=== PATIENT | female | born 1955 | race African-American/Black ===

== ENCOUNTER 2023-04-02 07:15 | Day surgery (SDC) | payer OTHER ==
[2023-03-26 15:06] VITALS: BMI 23.6
[2023-04-02] MEDS ORDERED: PROPOFOL 80 ML ONE (07:54)
[2023-04-02 09:21] VITALS: TEMP 96.2
[2023-04-02 09:27] VITALS: BP 108/60; PULSE 74; RESP 19
== END 2023-04-02 09:35 | disposition home or self-care (01) ==
LOC: FASU-ENDO 07:15
PROVIDERS: ATTEND Internal Medicine Gastroenterology
PROC: 0DJD8ZZ Inspection of Lower Intestinal Tract, Via Natural or Artificial Opening Endoscopic (ICD-10-PCS; principal; 2023-04-02 08:47)
DX: Z12.11 Encounter for screening for malignant neoplasm of colon (principal); K57.30 Diverticulosis of large intestine without perforation or abscess without bleeding